=== PATIENT | male | born 1960 | race Caucasian/White ===

== ENCOUNTER 2022-05-25 18:34 | Emergency (ER) | payer OTHER, SELFPAY ==
--- NOTE | 2022-05-25 18:34 | ECG_ITS ---
APPROVED REPORT Exam: Resting ECG HR:70 bpm ECG Measurements Heart Rate 70 AXES [place] 205 P 62 QRSd 105 QRS 57 QT 391 T 48 QTc 412 Conclusion SINUS RHYTHM NORMAL ECG UNCONFIRMED REPORT Electronically signed by : Navjot Sanchez MD 05/26/2022 19:53:37
[2022-05-25 18:35] VITALS: BP 153/96; PULSE 70; RESP 20; TEMP 36.7; O2SAT 95; BMI 33.9
--- NOTE | 2022-05-25 18:43 | PC.NURSE ---
1846 ED MD AT BEDSIDE FOR EVALUATION
--- NOTE | 2022-05-25 18:45 | XR_ITS ---
PROCEDURE INFORMATION: Exam: XR Chest Exam date and time: 05/25/2022 7:12 PM Age: 62 years old Clinical indication: Sternal or substernal pain; Patient HX: Chest pain, left hand numbness/tingling sensations. ; Additional info: Cough TECHNIQUE: Imaging protocol: Radiologic exam of the chest. Views: 1 view. COMPARISON: No relevant prior studies available. FINDINGS: Lungs: Mildly low lung volumes with associated vascular crowding and bibasilar atelectasis. Pleural spaces: Unremarkable. No pleural effusion. No pneumothorax. Heart/Mediastinum: Unremarkable. No cardiomegaly. Vasculature: Vascular calcifications. Bones/joints: Chronic left clavicular fracture. IMPRESSION: No acute findings.
--- NOTE | 2022-05-25 18:50 | [facility].EDCP ---
ED Disposition Condition on Discharge: Fair - Critical Care Critical Care Time: No <Jose Eduardo Pardo - Last Filed: 05/25/22 19:41> <Dameon Espana - Last Filed: 05/25/22 22:22> Clinical Impression: Atypical chest pain GERD (gastroesophageal reflux disease) Qualifiers: Esophagitis presence: without esophagitis Qualified Code(s): K21.9 - Gastro-esophageal reflux disease without esophagitis Chest pain Qualifiers: Chest pain type: precordial pain Qualified Code(s): R07.2 - Precordial pain Disposition: Home, Self-Care Instructions: DI for Chest Pain Additional Instructions: call pcp in am and return if any chest pain Referrals: Sherrill Freeman [Primary Care Provider] - Matty Spangler MD [Staff Physician] - Attestation: On 05/25/22, the high probability of a clinically significant, sudden or life threatening deterioration of the following system(s) required my full and direct attention, intervention and personal management. The time I documented below is in addition to time spent performing reported procedures but includes the following listed in this critical care notation. Medical Decision Making - Medical Records Medical records reviewed: Yes: I reviewed the patient's medical records. - Benjamín Inquiry Pt receiving controlled substance: Yes Benjamín was queried for this patient: Yes Reference #:: [id number] Risks and benefits of using a controlled substance: were discussed with pt by me - Lab Data Result diagrams: 05/25/22 18:35 05/25/22 18:35 - Radiology Data #1 Image(s): Chest Image Reviewed: Yes I reviewed the patient's radiology results, Yes I reviewed the patient's radiology image, Yes I have reviewed radiologist's interpretation Preliminary Findings: Normal/NAD - ECG Data Tracing #1 I reviewed this ECG and interpreted as documented below: ECG initial impression date: 05/25/22 ECG initial impression time: 18:34 ECG normal with no acute: arrhythmias, ischemia, conduction abnormalities, chamber hypertrophy Normal Sinus Rhythm: Yes - Reevaluation(s) Time: 19:42 - KANG Score for Non-Stemi Age of Patient: 60-69 years old Heart Rate: 70-89 bpm Systolic Blood Pressure: 140-159 mmHg Serum Creatinine: <0.40 mg/dl CHF Killip Class: I-No CHF Other Risk Factors: None Non-Stemi Risk Score: 92 Risk Stratification: 1-108 = Low Risk <RenatosrinivasaJose Eduardo wallace - Last Filed: 05/25/22 19:41> - Lab Data Lab results reviewed: Yes: I reviewed the patient's lab results. Result diagrams: 05/25/22 18:35 05/25/22 18:35 - ECG Data Tracing #2 Normal Sinus Rhythm: Yes Ischemic changes: non-specific ST-T wave changes (improved inf leads ) <Dameon Espana - Last Filed: 05/25/22 22:22> Vital Signs: 05/25/22 18:35 05/25/22 19:07 05/25/22 19:37 Temperature 98.1 F Temperature Source Oral Pulse Rate 78 71 Pulse Rate [Radial] 70 Respiratory Rate 20 16 17 Blood Pressure 141/92 H 144/92 H Blood Pressure [Right Arm] 153/96 H Blood Pressure Mean 112 104 Blood Pressure Mean [Right Arm] 115 Blood Pressure Source [Right Arm] Automatic Cuff Blood Pressure Position [Right Arm] Sitting 02 Sat by Pulse Oximetry 95 95 94 L Oxygen Delivery Method Room Air 05/25/22 20:07 05/25/22 20:37 Temperature Temperature Source Pulse Rate 73 64 Pulse Rate [Radial] Respiratory Rate 19 19 Blood Pressure 142/90 H 139/95 H Blood Pressure [Right Arm] Blood Pressure Mean 104 104 Blood Pressure Mean [Right Arm] Blood Pressure Source [Right Arm] Blood Pressure Position [Right Arm] 02 Sat by Pulse Oximetry 97 94 L Oxygen Delivery Method - Lab Data Lab Results 05/25/22 18:35: WBC 10.2, RBC 4.37 L, Hgb 13.3 L, Hct 41.7 L, MCV 95.5 H, MCH 30.3, MCHC 31.8, RDW 14.0, Plt Count 250, MPV 8.8, Neut % (Auto) 59.6, Lymph % (Auto) 30.5, [facility] % (Auto) 6.6, Eos % (Auto) 2.1, Baso % (Auto) 1.1, Neut # (Auto) 6.1, Lymph # (Auto) 3.1, [facility] # (Auto) 0.7, Eos # (Auto) 0.2, Ba
[2022-05-25 18:53] LABS: Chloride 110 mmol/L (98-107); Potassium 3.8 mmoL/L (3.5-5.1); Sodium 141 mmol/L (136-145)
[2022-05-25 18:54] LABS: Basophils # 0.1 K/mm3 (0-0.2); Basophils % 1.1 % (0.1-2.0); Eosinophils # 0.2 K/mm3 (0.0-0.4); Eosinophils % 2.1 % (0.1-12.0); Hematocrit 41.7 % (42.0-52.0); Hemoglobin 13.3 g/dL (14.1-18.0); Lymphocytes # 3.1 K/mm3 (0.7-4.5); Lymphocytes % 30.5 % (10-50); Mean Corpuscular HGB Conc 31.8 g/dL (31.8-35.4); Mean Corpuscular Hemoglobin 30.3 pg (27.0-31.2); Mean Corpuscular Volume 95.5 fl (80-94); Mean Platelet Volume 8.8 fl (7.4-10.4); Monocytes # 0.7 K/mm3 (0.1-1.0); Monocytes % 6.6 % (1.7-9.3); Neutrophils # 6.1 K/mm3 (1.8-7.8); Neutrophils % 59.6 % (37.0-80.0); Platelet Count 250 K/mm3 (142-424); Red Blood Count 4.37 M/mm3 (4.60-6.20); White Blood Count 10.2 K/mm3 (4.8-10.8)
[2022-05-25 18:55] LABS: Alanine Aminotransferase 29 U/L (12-78); Aspartate Amino Transferase 59 U/L (17-59)
[2022-05-25 18:56] LABS: Albumin Level 3.9 g/dl (3.5-5.0); Albumin/Globulin Ratio 1.3 (1.1-1.8); Alkaline Phosphatase 76 U/L (38-126); Anion Gap 8.8 mEq/L (5-15); Bilirubin,Total 0.2 mg/dl (0.2-1.3); Carbon Dioxide 26 mmol/L (22.0-30.0); Glucose 82 mg/dl (74-100); Lipase 91 U/L (23-300); Total Protein,Serum 6.9 g/dl (6.3-8.2)
--- NOTE | 2022-05-25 18:57 | PC.NURSE ---
PT MEDICATED PER EMAR, DENIES NEEDS AT THIS TIME
[2022-05-25 19:00] LABS: Activated Partial Thrombo Time 26.2 seconds (22.8-30.6); INR 0.93 (0.9-1.1); Prothrombin Time 10.6 seconds (10.1-12.5)
[2022-05-25 19:01] LABS: Blood Urea Nitrogen 24 mg/dl (9-20)
--- NOTE | 2022-05-25 19:04 | PC.NURSE ---
XR AT BEDSIDE
[2022-05-25 19:05] LABS: NT Pro Brain Natriuretic Pep. 96.8 pg/mL (0-125)
[2022-05-25 19:07] VITALS: BP 141/92; PULSE 78; RESP 16; O2SAT 95
[2022-05-25 19:17] LABS: Troponin I < 0.01 ng/ml (0.00-0.034)
[2022-05-25 19:24] LABS: Creatinine Clearance Estimated 70 mL/min (50-200); Estimated Glomerular Filt Rate 41 ml/min (>60); GFR (African American) 49 ML/MIN (>60)
[2022-05-25 19:37] VITALS: BP 144/92; PULSE 71; RESP 17; O2SAT 94
[2022-05-25 20:07] VITALS: BP 142/90; PULSE 73; RESP 19; O2SAT 97
[2022-05-25 20:37] VITALS: BP 139/95; PULSE 64; RESP 19; O2SAT 94
--- NOTE | 2022-05-25 21:04 | ECG_ITS ---
APPROVED REPORT Exam: Resting ECG HR:68 bpm ECG Measurements Heart Rate 68 AXES MD 194 P 50 QRSd 105 QRS 41 QT 399 T 40 QTc 417 Conclusion SINUS RHYTHM NORMAL ECG UNCONFIRMED REPORT Electronically signed by : Navjot Sanchez MD 05/26/2022 19:53:28
[2022-05-25 21:48] LABS: Troponin I < 0.01 ng/ml (0.00-0.034)
[2022-05-25 22:14] VITALS: BP 135/84; PULSE 62; RESP 16; TEMP 36.7; O2SAT 97
== END 2022-05-25 22:29 | disposition home or self-care (01) ==
PROVIDERS: Emergency Provider Emergency Medicine; PCP Family Medicine
DX: R07.2 Precordial pain (principal); K21.9 Gastro-esophageal reflux disease without esophagitis; I10 Essential (primary) hypertension; R20.2 Paresthesia of skin; R11.0 Nausea; E78.00 Pure hypercholesterolemia, unspecified; Z79.01 Long term (current) use of anticoagulants; Z79.899 Other long term (current) drug therapy
CPT/HCPCS: 71045; 80053; 83690; 83880; 84484; 85025; 85610; 85730; 93005; 96374; 96375; 99285; J2405

== ENCOUNTER 2022-06-30 17:04 | Emergency (ER) | payer OTHER, SELFPAY ==
[2022-06-30 17:10] VITALS: BP 142/84; PULSE 71; RESP 20; TEMP 36.7; O2SAT 98; BMI 33.9
[2022-06-30 17:15] VITALS: BP 142/84; PULSE 71; RESP 20; TEMP 36.7; O2SAT 98; BMI 33.8
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
[2022-06-30 17:51] VITALS: BP 142/84; PULSE 71; RESP 20; TEMP 36.7; O2SAT 98
== END 2022-06-30 18:24 | disposition home or self-care (01) ==
PROVIDERS: Emergency Provider Nurse Practitioner; PCP Family Medicine
DX: S91.112A Laceration without foreign body of left great toe without damage to nail, initial encounter (principal); S91.111A Laceration without foreign body of right great toe without damage to nail, initial encounter; W22.8XXA Striking against or struck by other objects, initial encounter
CPT/HCPCS: 12001; 90471; 90715; 99213; G0463